=== PATIENT | female | born 1940 | race Caucasian/White ===

== ENCOUNTER 2017-04-03 10:35 | Outpatient (CLI) | payer MEDICARE, BC ==
--- NOTE | 2017-04-04 09:23 | Mammography Report ---
DIGITAL BILATERAL SCREENING MAMMOGRAM: 04/03/2017 CLINICAL HISTORY: A 76-year-old female who has no family history of breast cancer. The patient has saini d a breast biopsy. This was a needle biopsy a long time ago. COMPARISON: 01/22/2014, 02/23/2015. TECHNIQUE: Craniocaudad and oblique lateral views of each breast were obtained with Hologic full fiel d digital mammography. FINDINGS: The breast parenchyma consists of scattered fibroglandular densities. The oblique lateral view of the left breast does not show as much as the posterior inferior aspect of the left breast as noted on preceding exams. Recommend patient return for a repeat oblique lateral view of the left eri st. Several small benign intramammary lymph nodes are once again noted in the upper outer quadrant of the right breast with a single small benign appearing lymph node noted in the upper outer quadrant of th e left breast. A small surgical clip is noted in the central posterior aspect of the right breast rel ated to a previous minimally invasive breast biopsy. There is a small asymmetrical density in this ar ea once again seen measuring 0.7 cm in diameter. This has been noted on multiple preceding exams date d as far back as 01/22/2014 and is unchanged. The small calcifications are also noted in this area on ce again. These calcifications are unchanged. IMPRESSION: THE PRESENT EXAM IS SUBOPTIMAL. RECOMMEND PATIENT RETURN FOR A REPEAT OBLIQUE LATERAL EW OF THE LEFT BREAST FOR REASONS DISCUSSED ABOVE. BIRADS CATEGORY 0-INCOMPLETE. NEEDS ADDITIONAL IMAGING EVALUATION. REPEAT OBLIQUE LATERAL VIEW OF THE LEFT BREAST. STANDARD QUALIFYING STATEMENTS 1. This examination was reviewed with the aid of Computer-Aided Detection (CAD). 2. A negative or benign imaging report should not delay biopsy if clinically suspicious findings are present. Consider surgical consultation if warranted. More than 5% of cancers are not identified by i maging. 3. Dense breasts may obscure an underlying neoplasm. JOB #: [id number] EXT JOB #:[id number]
== END 2017-04-03 10:36 | disposition home or self-care (01) ==
LOC: DI.S 10:35
PROVIDERS: ATTEND Internal Medicine
DX: Z12.31 Encounter for screening mammogram for malignant neoplasm of breast (principal)
CPT/HCPCS: 77067

== ENCOUNTER 2017-04-25 14:26 | Outpatient (CLI) | payer MEDICARE, BC | END 2017-04-25 14:27 | disposition home or self-care (01) | LOC: DI 14:26 | PROVIDERS: ATTEND Internal Medicine | DX: Z12.31 Encounter for screening mammogram for malignant neoplasm of breast (principal) | CPT/HCPCS: 77067 ==

== ENCOUNTER 2017-05-07 10:08 | Outpatient (CLI) | payer MEDICARE, BC ==
[2017-05-07 18:04] LABS: BASOPHILS # (AUTO) 0.1 10^3/uL (0.0-0.1); EOSINOPHILS # (AUTO) 0.1 10^3/uL (0.0-0.7); EOSINOPHILS % (AUTO) 4.1 %; HCT - HEMATOCRIT 34.6 % (37.0-47.0); HGB - HEMOGLOBIN 10.8 g/dL (12.0-16.0); IMMATURE RETIC FRACTION 0.51; LYMPHOCYTES % (AUTO) 26.3 %; MEAN CORPUSCULAR HEMOGLOBIN 23.4 pg (27.0-31.0); MEAN CORPUSCULAR HGB CONC 31.3 g/dL (32.0-36.0); MEAN CORPUSCULAR VOLUME 74.7 fL (81.0-99.0); MONOCYTES # (AUTO) 0.3 10^3/uL (0.0-1.0); MONOCYTES % (AUTO) 9.3 %; NEUTROPHILS # (AUTO) 2.1 10^3/uL (1.5-6.6); NEUTROPHILS % (AUTO) 58.3 %; NUCLEATED RED BLOOD CELLS AUTO 0.1 /100WBC; RED BLOOD COUNT 4.64 10^6/uL (4.20-5.40); RED CELL DISTRIBUTION WIDTH 20.3 % (12.0-15.0); UNCORRECTED WHITE BLOOD COUNT 3.6 x10^3/uL; WHITE BLOOD COUNT 3.6 x10^3/uL (4.8-10.8)
[2017-05-07 18:23] LABS: PLATELET ESTIMATE, MANUAL NORMAL (130-450,000) (NORMAL); PLATELET MORPHOLOGY NORMAL APPEARANCE (NORMAL)
[2017-05-07 19:31] LABS: ALBUMIN/GLOBULIN RATIO 1.6 (1.0-2.2); BILIRUBIN,TOTAL 0.8 mg/dL (0.2-1.0); BUN - BLOOD UREA NITROGEN 24 mg/dL (6-20); CALCIUM 8.9 mg/dL (8.5-10.3); CARBON DIOXIDE - CO2 26 mmol/L (21-32); CHLORIDE 101 mmol/L (101-111); CHOLESTEROL 247 mg/dL; GFR - MDRD 54 (>89); GLUCOSE 84 mg/dL (70-100); HDL CHOLESTEROL 122 mg/dL; IRON 19 ug/dL (28-170); POTASSIUM 4.1 mmol/L (3.5-5.0); SODIUM 136 mmol/L (135-145); TOTAL IRON BINDING CAPACITY 463 ug/dL (250-450); TOTAL PROTEIN 6.9 g/dL (6.7-8.2); TRANSFERRIN 331 mg/dL (192-382); TRIGLYCERIDES 28 mg/dL
[2017-05-07 19:49] LABS: LDL CHOLESTEROL,DIRECT 103 mg/dL
== END 2017-05-07 10:09 | disposition home or self-care (01) ==
LOC: LAB.F 10:08
PROVIDERS: ATTEND Internal Medicine
DX: I10 Essential (primary) hypertension (principal)
CPT/HCPCS: 36415; 80053; 80061; 82607; 82728; 82746; 82747; 83540; 84466; 85025; 85044

== ENCOUNTER 2017-11-20 08:27 | Outpatient (CLI) | payer MEDICARE, BC | END 2017-11-20 08:28 | disposition home or self-care (01) | LOC: LAB.F 08:27 | PROVIDERS: ATTEND Nurse Practitioner Family | DX: I48.0 Paroxysmal atrial fibrillation (principal) | CPT/HCPCS: 85610 ==

== ENCOUNTER 2017-11-26 15:37 | Outpatient (CLI) | payer MEDICARE, BC | END 2017-11-26 15:38 | disposition home or self-care (01) | LOC: LAB.F 15:37 | PROVIDERS: ATTEND Student in an Organized Health Care Education/Training Program | DX: I48.91 Unspecified atrial fibrillation (principal) | CPT/HCPCS: 85610 ==

== ENCOUNTER 2017-12-04 14:51 | Outpatient (CLI) | payer MEDICARE, BC | END 2017-12-04 14:52 | disposition home or self-care (01) | LOC: LAB.F 14:51 | PROVIDERS: ATTEND Student in an Organized Health Care Education/Training Program | DX: I48.91 Unspecified atrial fibrillation (principal) | CPT/HCPCS: 85610 ==

== ENCOUNTER 2017-12-11 12:19 | Outpatient (CLI) | payer MEDICARE, BC | END 2017-12-11 12:20 | disposition home or self-care (01) | LOC: LAB.F 12:19 | PROVIDERS: ATTEND Student in an Organized Health Care Education/Training Program | DX: I48.91 Unspecified atrial fibrillation (principal) | CPT/HCPCS: 85610 ==

== ENCOUNTER 2018-01-07 15:06 | Outpatient (CLI) | payer MEDICARE, BC | END 2018-01-07 15:07 | disposition home or self-care (01) | LOC: LAB.F 15:06 | PROVIDERS: ATTEND Student in an Organized Health Care Education/Training Program | DX: I48.91 Unspecified atrial fibrillation (principal) | CPT/HCPCS: 85610 ==

== ENCOUNTER 2018-01-22 10:31 | Outpatient (CLI) | payer MEDICARE, BC | END 2018-01-22 10:32 | disposition home or self-care (01) | LOC: LAB.F 10:31 | PROVIDERS: ATTEND Student in an Organized Health Care Education/Training Program | DX: I48.91 Unspecified atrial fibrillation (principal) | CPT/HCPCS: 85610 ==

== ENCOUNTER 2018-02-13 10:50 | Outpatient (CLI) | payer MEDICARE, BC | END 2018-02-13 10:51 | disposition home or self-care (01) | LOC: LAB.F 10:50 | PROVIDERS: ATTEND Student in an Organized Health Care Education/Training Program | DX: I48.91 Unspecified atrial fibrillation (principal) | CPT/HCPCS: 85610 ==

== ENCOUNTER 2018-03-08 13:13 | Outpatient (CLI) | payer MEDICARE, BC | END 2018-03-08 13:14 | disposition home or self-care (01) | LOC: LAB.F 13:13 | PROVIDERS: ATTEND Student in an Organized Health Care Education/Training Program | DX: I48.91 Unspecified atrial fibrillation (principal) | CPT/HCPCS: 85610 ==

== ENCOUNTER 2018-04-01 11:32 | Outpatient (CLI) | payer MEDICARE, BC | END 2018-04-01 11:33 | disposition home or self-care (01) | LOC: LAB.F 11:32 | PROVIDERS: ATTEND Student in an Organized Health Care Education/Training Program | DX: I48.91 Unspecified atrial fibrillation (principal) | CPT/HCPCS: 85610 ==

== ENCOUNTER 2018-04-16 14:00 | Outpatient (CLI) | payer MEDICARE, BC | END 2018-04-16 14:01 | disposition home or self-care (01) | LOC: LAB.F 14:00 | PROVIDERS: ATTEND Student in an Organized Health Care Education/Training Program | DX: I48.91 Unspecified atrial fibrillation (principal) | CPT/HCPCS: 85610 ==

== ENCOUNTER 2018-05-08 15:19 | Outpatient (CLI) | payer MEDICARE, BC | END 2018-05-08 15:20 | disposition home or self-care (01) | LOC: LAB.F 15:19 | PROVIDERS: ATTEND Student in an Organized Health Care Education/Training Program | DX: I48.91 Unspecified atrial fibrillation (principal) | CPT/HCPCS: 85610 ==

== ENCOUNTER 2018-06-05 14:20 | Outpatient (CLI) | payer MEDICARE, BC | END 2018-06-05 14:21 | disposition home or self-care (01) | LOC: LAB.F 14:20 | PROVIDERS: ATTEND Student in an Organized Health Care Education/Training Program | DX: I48.91 Unspecified atrial fibrillation (principal) | CPT/HCPCS: 85610 ==

== ENCOUNTER 2018-07-02 14:53 | Outpatient (CLI) | payer MEDICARE, BC | END 2018-07-02 14:54 | disposition home or self-care (01) | LOC: LAB.F 14:53 | PROVIDERS: ATTEND Student in an Organized Health Care Education/Training Program | DX: I48.91 Unspecified atrial fibrillation (principal) | CPT/HCPCS: 85610 ==

== ENCOUNTER 2018-08-01 13:35 | Outpatient (CLI) | payer MEDICARE, BC ==
[2018-08-01 18:51] LABS: INR 2.7 (0.8-1.2); PT - PROTHROMBIN TIME 29.7 secs (9.9-12.6)
== END 2018-08-01 13:36 | disposition home or self-care (01) ==
LOC: LAB.F 13:35
PROVIDERS: ATTEND Student in an Organized Health Care Education/Training Program
DX: I48.91 Unspecified atrial fibrillation (principal)
CPT/HCPCS: 36415; 85610

== ENCOUNTER 2018-08-30 14:04 | Outpatient (CLI) | payer MEDICARE, BC | END 2018-08-30 14:05 | disposition home or self-care (01) | LOC: LAB.F 14:04 | PROVIDERS: ATTEND Student in an Organized Health Care Education/Training Program | DX: I48.91 Unspecified atrial fibrillation (principal) | CPT/HCPCS: 85610 ==

== ENCOUNTER 2018-09-24 13:55 | Outpatient (CLI) | payer MEDICARE, BC | END 2018-09-24 13:56 | disposition home or self-care (01) | LOC: LAB.F 13:55 | PROVIDERS: ATTEND Student in an Organized Health Care Education/Training Program | DX: I48.91 Unspecified atrial fibrillation (principal) | CPT/HCPCS: 85610 ==

== ENCOUNTER 2018-11-01 10:45 | Outpatient (CLI) | payer MEDICARE, BC | END 2018-11-01 10:46 | disposition home or self-care (01) | LOC: LAB.F 10:45 | PROVIDERS: ATTEND Student in an Organized Health Care Education/Training Program | DX: I48.91 Unspecified atrial fibrillation (principal) | CPT/HCPCS: 85610 ==

== ENCOUNTER 2018-11-19 08:00 | Outpatient (CLI) | payer MEDICARE, BC | END 2018-11-19 23:59 | disposition home or self-care (01) | LOC: LAB.F 08:00 | PROVIDERS: ATTEND Student in an Organized Health Care Education/Training Program | DX: I48.91 Unspecified atrial fibrillation (principal) | CPT/HCPCS: 85610 ==

== ENCOUNTER 2018-12-30 19:07 | Observation (INO) | payer MEDICARE, BC ==
[2018-12-30 19:57] LABS: ALBUMIN 3.7 g/dL (3.2-5.5); ALBUMIN/GLOBULIN RATIO 1.2 (1.0-2.2); BILIRUBIN,TOTAL 1.2 mg/dL (0.2-1.0); CALCIUM 9.4 mg/dL (8.5-10.3); CREATININE 1.3 mg/dL (0.4-1.0); TOTAL PROTEIN 6.7 g/dL (6.7-8.2)
[2018-12-30 19:59] LABS: BASOPHILS # (AUTO) 0.1 10^3/uL (0.0-0.1); BASOPHILS % (AUTO) 2.3 %; EOSINOPHILS # (AUTO) 0.1 10^3/uL (0.0-0.7); EOSINOPHILS % (AUTO) 3.1 %; HGB - HEMOGLOBIN 7.2 g/dL (12.0-16.0); LYMPHOCYTES # (AUTO) 0.7 10^3/uL (1.5-3.5); MEAN CORPUSCULAR HGB CONC 30.1 g/dL (32.0-36.0); MEAN CORPUSCULAR VOLUME 69.6 fL (81.0-99.0); MEAN PLATELET VOLUME 6.8 fL (7.9-10.8); MONOCYTES # (AUTO) 0.4 10^3/uL (0.0-1.0); NEUTROPHILS # (AUTO) 2.8 10^3/uL (1.5-6.6); NEUTROPHILS % (AUTO) 67.6 %; PLT - PLATELET COUNT 324 10^3/uL (130-450); RED BLOOD COUNT 3.45 10^6/uL (4.20-5.40); RED CELL DISTRIBUTION WIDTH 20.3 % (12.0-15.0); WHITE BLOOD COUNT 4.1 x10^3/uL (4.8-10.8)
--- NOTE | 2018-12-30 20:08 | ED Physician Documentation ---
History of Present Illness - Stated complaint Stated Complaint: SENT BY - Chief complaint Chief Complaint: General - History obtained from History obtained from: Patient - History of Present Illness Timing: Today Pain level max: 0 Pain level now: 0 Improved by: no ameliorating factors Worsened by: no exacerbating factors Associated symptoms: fatigue - Additonal information Additional information: saw PMD today for routine/annual visit. Blood work was done and patient was called tonight due to anemia, advised to go to ED. Patient has been having some back pain and fatigue on a chronic/subacute basis. She is aware that she has had anemia as a diagnosis in the past but does not recall ever needing transfusions. Review of Systems Constitutional: reports: Fatigue. denies: Fever, Chills, Sweats Eyes: reports: Reviewed and negative Ears: reports: Reviewed and negative Nose: reports: Reviewed and negative Throat: reports: Reviewed and negative Cardiac: reports: Reviewed and negative Respiratory: reports: Reviewed and negative GI: reports: Reviewed and negative : reports: Reviewed and negative Skin: reports: Reviewed and negative Musculoskeletal: reports: Back pain (chronic, mild) Neurologic: denies: Generalized weakness, Focal weakness, Numbness, Headache PD PAST MEDICAL HISTORY - Past Medical History Past Medical History: Yes Cardiovascular: Hypertension, Atrial fibrillation - Past Surgical History Past Surgical History: Yes Ortho: Hip replacement HEENT: Tonsil/Adenoidectomy - Present Medications Home Medications: Ambulatory Orders Medication Instructions Recorded Confirmed Ascorbic Acid [Vitamin C] 1,000 mg PO DAILY 12/30/18 12/30/18 D-Mannose [Mannxtra] 12/30/18 Enalapril [Vasotec] 10 mg PO DAILY 12/30/18 12/30/18 Metoprolol Succinate 50 mg PO DAILY 12/30/18 12/30/18 Multivitamin/Iron/Folic Acid 1 tab PO DAILY 12/30/18 12/30/18 [Centrum Adults Tablet] Warfarin [Coumadin] 2.5 mg PO DAILY 12/30/18 12/30/18 - Allergies Allergies/Adverse Reactions: Allergies Allergy/AdvReac Type Severity Reaction Status Date / Time No Known Drug Allergies Allergy Verified 12/30/18 19:17 - Social History Does the pt smoke?: No Smoking Status: Never smoker Does the pt drink ETOH?: Yes Does the pt have substance abuse?: No PD ED PE NORMAL - Vitals Vital signs reviewed: Yes - General General: Alert and oriented X 3, No acute distress, Well developed/nourished - HEENT HEENT: PERRL, EOMI, Moist mucous membranes - Neck Neck: Supple, no meningeal sign - Cardiac Cardiac: No murmur - Respiratory Respiratory: No respiratory distress, Clear bilaterally - Abdomen Abdomen: Normal bowel sounds, Soft, Non tender, Non distended - Back Back: No CVA TTP - Derm Derm: Normal color, Warm and dry - Extremities Extremities: No edema - Neuro Neuro: Alert and oriented X 3 PD ED PE EXPANDED - Cardiac Cardiac: Regular Rate, Irregularly irregular - Rectal Rectal: Heme Occult Pos - QC +, Manager Credit present (ROBLES Koch), Other (normal appearing stool, guaiac (+)) Results - Vitals Vitals: Vital Signs - 24 hr 12/30/18 12/30/18 12/30/18 19:13 21:07 22:12 Temperature 36.4 C L 36.7 C Heart Rate 105 H 90 101 H Respiratory 18 15 17 Rate Blood Pressure 128/54 L 139/92 H 131/69 H O2 Saturation 100 100 12/30/18 12/30/18 12/30/18 22:19 22:29 23:03 Temperature 36.4 C L 36.7 C 35.9 C L Heart Rate 94 96 88 Respiratory 17 17 17 Rate Blood Pressure 131/92 H 133/73 H 132/76 H O2 Saturation 12/30/18 23:06 Temperature 35.9 C L Heart Rate 88 Respiratory 17 Rate Blood Pressure 132/76 H O2 Saturation 97 Oxygen O2 Source Room air - Labs Labs: Laboratory Tests 12/30/18 12/30/18 12/30/18 19:38 19:38 19:38 WBC 4.1 L RBC 3.45 L Hgb 7.2 L Hct 24.0 L MCV 69.6 L MCH 21.0 L MCHC 30.1 L RDW 20.3 H Plt Count 324 MPV 6.8 L Neut # (Auto) 2.8 Lymph # (Auto) 0.7 L [place] # (Auto) 0.4 Eos # (Auto) 0.1 Baso # (Auto) 0.1 Absolute Nucleated RBC 0.01 Nucleated RBC % 0.3 Manual Slide Review Indicated Platelet Estimate NORMAL (130-450,000) Platelet Morphology NORMAL APPEARANCE RBC Morph Micro Appear 1+ JOAQUINA CELLS PT 16.8 H INR 1.5 H APTT 29.1 Sodium 141 Potassium 4.2 Chloride 102 Carbon Dioxide 26 Anion Gap 13.0 BUN 36 H Creatinine 1.3 H Estimated GFR (MDRD) 40 L Glucose 116 H Calcium 9.4 Iron TIBC % Saturation Transferrin Ferritin Total Bilirubin 1.2 H AST 23 ALT 24 Alkaline Phosphatase 53 Total Protein 6.7 Albumin 3.7 Globulin 3.0 Albumin/Globulin Ratio 1.2 Lipase 48 Blood Type Blood Type Recheck Antibody Screen Crossmatch IS Only 12/30/18 12/30/18 12/30/18 19:38 19:38 19:38 WBC RBC Hgb Hct MCV MCH MCHC RDW Plt Count MPV Neut # (Auto) Lymph # (Auto) [place] # (Auto) Eos # (Auto) Baso # (Auto) Absolute Nucleated RBC Nucleated RBC % Manual Slide Review Platelet Estimate Platelet Morphology RBC Morph Micro Appear PT INR APTT Sodium Potassium Chloride Carbon Dioxide Anion Gap BUN Creatinine Estimated GFR (MDRD) Glucose Calcium Iron 16 L TIBC 539 H % Saturation 3 L Transferrin 385 H Ferritin 5.4 L Total Bilirubin AST ALT Alkaline Phosphatase Total Protein Albumin Globulin Albumin/Globulin Ratio Lipase Blood Type Blood Type Recheck O POSITIVE Antibody Screen Crossmatch IS Only 12/30/18 20:35 WBC RBC Hgb Hct MCV MCH MCHC RDW Plt Count MPV Neut # (Auto) Lymph # (Auto) [place] # (Auto) Eos # (Auto) Baso # (Auto) Absolute Nucleated RBC Nucleated RBC % Manual Slide Review Platelet Estimate Platelet Morphology RBC Morph Micro Appear PT INR APTT Sodium Potassium Chloride Carbon Dioxide Anion Gap BUN Creatinine Estimated GFR (MDRD) Glucose Calcium Iron TIBC % Saturation Transferrin Ferritin Total Bilirubin AST ALT Alkaline Phosphatase Total Protein Albumin Globulin Albumin/Globulin Ratio Lipase Blood Type O POSITIVE Blood Type Recheck Antibody Screen NEGATIVE Crossmatch IS Only See Detail PD MEDICAL DECISION MAKING - ED course Complexity details: reviewed old records, reviewed results, re-evaluated patient, considered differential, d/w patient Departure - Departure Disposition: ED Place in Observation Clinical Impression: Anemia Qualifiers: Anemia type: unspecified type Qualified Code(s): D64.9 - Anemia, unspecified GI bleed Qualifiers: GI bleed type/associated pathology: unspecified gastrointestinal hemorrhage type Qualified Code(s): K92.2 - Gastrointestinal hemorrhage, unspecified Condition: Stable Discharge Date/Time: 12/31/18 00:01
[2018-12-30 20:18] LABS: PLATELET ESTIMATE, MANUAL NORMAL (130-450,000) (NORMAL); PLATELET MORPHOLOGY NORMAL APPEARANCE (NORMAL)
[2018-12-30 20:26] LABS: INR 1.5 (0.8-1.2); PT - PROTHROMBIN TIME 16.8 secs (9.9-12.6)
[2018-12-30 20:33] LABS: PARTIAL THROMBOPLASTIN TIME 29.1 secs (24.9-33.3)
[2018-12-30 21:59] LABS: % IRON SATURATION 3 % (20-50); IRON 16 ug/dL (28-170); TOTAL IRON BINDING CAPACITY 539 ug/dL (250-450); TRANSFERRIN 385 mg/dL (192-382)
[2018-12-30] MEDS ORDERED: SODIUM CHLORIDE FLUSH 0.9% 10 ML SYRINGE IVP PRN (23:16)
--- NOTE | 2018-12-31 00:06 | HISTORY & PHYSICAL EXAMINATION ---
Chief Complaint - Chief Complaint Chief Complaint: anemia History of Present Illness - Admitted From Admitted From:: [facility] ED - History Obtained From Records Reviewed: yes History obtained from: patient and [id number] - History of Present Illness HPI Comment/Other: Patient is a 78 y/o female with Hx of atrial fibrillation on coumadin and metoprolol who presented to the ED at the request of her primary care physician's clinic. She goes to the [facility] and had a routine visit today. Lab result showed she had a hemoglobin of 7.2. She denies any recent SOB, dizziness, palpitations, dark tarry stools, coffee ground emesis or hemoptysis. She cannot remember when she last had a CBC done or what her hemoglobin was. In the ED her hemoglobin was 7.2. It was reported that her guaiac stool test was very weakly positive. She denies chest pain, abd pain, nausea, vomiting, fever or chills. The rest of her history is unremarkable. She is being admitted for further work up. History - Past Medical History Cardiovascular: reports: Hypertension, Atrial fibrillation Musculoskeletal: reports: Scoliosis MRSA Hx?: No - Past Surgical History Ortho: reports: Hip replacement HEENT: reports: Tonsil/Adenoidectomy - Family & Social History Family History Comment/Other: Extensive family history of manic depression (un specified relative). Mother and siblings: extensive cardiac history (unspecified) Living arrangement: At home Living Situation: Alone Social History Notes: She lives in her house in [place]. Alone. She is . Her of 57 years in February 2018. She is independent of activities of daily living like grooming, cooking. She does not drive. She relies on friend and family for rides to her appointments,. She denies tobacco use or illicit drug use. She occassionally drinks alcohol - Substance History Use: Uses substance without health or social issues: NONE - POLST Patient has POLST: No POLST Status: DNR Meds/Allgy - Home Medications Home Medications: Ambulatory Orders Medication Instructions Recorded Confirmed Ascorbic Acid [Vitamin C] 1,000 mg PO DAILY 12/30/18 12/30/18 D-Mannose [Mannxtra] 12/30/18 Enalapril [Vasotec] 10 mg PO DAILY 12/30/18 12/30/18 Metoprolol Succinate 50 mg PO DAILY 12/30/18 12/30/18 Multivitamin/Iron/Folic Acid 1 tab PO DAILY 12/30/18 12/30/18 [Centrum Adults Tablet] Warfarin [Coumadin] 2.5 mg PO DAILY 12/30/18 12/30/18 - Allergies Allergies/Adverse Reactions: Allergies Allergy/AdvReac Type Severity Reaction Status Date / Time No Known Drug Allergies Allergy Verified 12/30/18 19:17 Review of Systems - Constitutional Constitutional: denies: Fever, Chills, Diaphoresis, Night sweats - Eyes Eyes: denies: Blurred vision, Vision loss, Dipolpia - Ears, Nose & Throat Ears, Nose & Throat: denies: Nasal pain, Nasal discharge, Hoarseness - Cardiovascular Cariovascular: reports: Irregular heart rate. denies: Chest pain, Edema, Lightheadedness, Syncope, Exertional dyspnea - Respiratory Respiratory: denies: Cough, Sputum production, Wheezing, SOB at rest - Gastrointestinal Gastrointestinal: denies: Abdominal pain, Abdominal distention, Constipation, Diarrhea, Rectal bleeding, Bloody stools, Nausea, Vomiting, Brian blood emesis, Coffee grounds emesis, Reflux/heartburn - Genitourinary Genitourinary: denies: Dysuria, Frequency, Urgency, Hematuria - Musculoskeletal Musculoskeletal: denies: Muscle pain, Back pain, Stiffness, Joint pain - Integumentary Integumentary: reports: Rash (bilateral lower extremities. itching), Pruritis - Neurological Neurological: denies: General weakness, Focal weakness, Headache, Dizziness, Abnormal gait - Psychiatric Psychiatric: denies: Depression, Anxiety - Endocrine Endocrine: denies: Polyuria, Polydypsia - Hematologic/Lymphatic Hematologic/Lymphatic: reports: Anemia. denies: Bruising, Petechiae Prior Level of Functionality: She is . Her of 57 years in February 2018 She is independent of activities of daily living like grooming, cooking. She does not drive. She relies on friend and family for rides to her appointments, She denies tobacco use or illicit drug use. She occasionally drinks alcohol Exam - Vital Signs Vital Signs: Vital Signs x48h Temp Pulse Resp BP Pulse Ox 12/30/18 23:36 36.5 C 92 16 128/70 12/30/18 23:25 37.0 C 92 16 131/87 H 12/30/18 23:20 37.1 C 93 17 123/94 H 12/30/18 23:06 35.9 C L 88 17 132/76 H 97 12/30/18 23:03 35.9 C L 88 17 132/76 H 12/30/18 22:29 36.7 C 96 17 133/73 H 12/30/18 22:19 36.4 C L 94 17 131/92 H 12/30/18 22:12 36.7 C 101 H 17 131/69 H 12/30/18 21:07 90 15 139/92 H 100 12/30/18 19:13 36.4 C L 105 H 18 128/54 L 100 - Physical Exam General Appearance: positive: No acute distress, Alert Eyes Bilateral: positive: Normal inspection, PERRL, EOMI ENT: positive: ENT inspection nml, Pharynx nml, No signs of dehydration Neck: positive: Nml inspection, No JVD, Trachea midline Respiratory: positive: Chest non-tender, No respiratory distress, Breath sounds nml. negative: Wheezes, Rales, Rhonchi Cardiovascular: positive: No murmur, Irregularly irregular Abdomen: positive: Non-tender, No organomegaly, Nml bowel sounds, No distention. negative: Guarding, Rebound Rectal: positive: Stool - heme POS (very weakly positive). negative: Black stool, Bloody stool Back: positive: Nml inspection Skin: positive: Skin rash (distal half of legs distal to knee bilaterally. Pruiritic) Extremities: positive: Non-tender, Full ROM, No pedal edema Neurologic/Psychiatric: positive: Oriented x3 Conclusion/Plan - Problem List (1) Anemia Conclusion/Plan: DDx: Iron Deficiency vs GI Bleed Likely Iron deficiency given result of iron studies and Microcytic nature of anemia s/p 2 units of PRBC. Guaiac was very weakly positive. Will check occult blood. Will trend H&H q8hrs X 3. If dropping, will consult General Surgery for EGD. Otherwise, will resume her coumadin and patient will need to follow up out patient for possible endoscopy Protonix 40mg IV daily ordered. Will place patient on supplemental iron Qualifiers: Anemia type: unspecified type Qualified Code(s): D64.9 - Anemia, unspecified (2) Atrial fibrillation Conclusion/Plan: On metoprolol. Will continue Will hold coumadin for now. Subtherapeutic Qualifiers: Atrial fibrillation type: chronic Qualified Code(s): I48.2 - Chronic atrial fibrillation (3) Hypertension Conclusion/Plan: On metoprolol and enalopril. Will continue - Lab Results Fish Bones: 12/30/18 19:38 12/30/18 19:38 Core Measures - Anticipated LOS I expect patient to be DC'd or transferred within 96 hours.: Yes - DVT/VTE - Prophylaxis VTE/DVT Device ordered at admit?: Yes Not Ordered - Medical Reason: Not indicated
[2018-12-31] MEDS: SODIUM CHLORIDE FLUSH 0.9% 10 ML SYRINGE IVP SCH ×2 (00:35→08:49)
[2018-12-31] MEDS: HYDROCORTISONE 1% CREAM 28 GM TUBE TOP SCH ×2 (00:54→08:42)
[2018-12-31] MEDS: METOPROLOL SUCCINATE 50 MG TABLET PO SCH ×2 (00:54→08:41)
[2018-12-31 06:14] LABS: CALCIUM 8.7 mg/dL (8.5-10.3)
[2018-12-31 06:18] LABS: HGB - HEMOGLOBIN 7.8 g/dL (12.0-16.0); MEAN CORPUSCULAR HEMOGLOBIN 22.7 pg (27.0-31.0); MEAN CORPUSCULAR HGB CONC 30.9 g/dL (32.0-36.0); MEAN CORPUSCULAR VOLUME 73.6 fL (81.0-99.0); MEAN PLATELET VOLUME 7.1 fL (7.9-10.8); RED BLOOD COUNT 3.44 10^6/uL (4.20-5.40); RED CELL DISTRIBUTION WIDTH 23.1 % (12.0-15.0); WHITE BLOOD COUNT 5.2 x10^3/uL (4.8-10.8)
[2018-12-31] MEDS ORDERED: PANTOPRAZOLE 40 MG VIAL IVP SCH (07:00)
[2018-12-31 07:33] LABS: ABSOLUTE RETICS # AUTO 0.071 10^6/uL (0.020-0.110); MEAN RETIC VALUE 95.2; RED BLOOD COUNT 3.41 10^6/uL (4.20-5.40)
[2018-12-31] MEDS ORDERED: FERROUS SULFATE 325 MG TABLET PO SCH (08:00)
[2018-12-31] MEDS ORDERED: PIPERACILLIN/TAZOBACTAM 3.375 GM in SODIUM CHLORIDE 0.9% MINIBAG 100 ML IV ONE (08:00)
[2018-12-31] MEDS ORDERED: POLYETHYLENE GLYCOL 3350 17 GM PACKET PO SCH (09:00)
[2018-12-31] MEDS ORDERED: ENALAPRIL 5 MG TABLET PO SCH (09:00)
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
[2018-12-31 11:47] VITALS: BP 143/72
[2018-12-31] MEDS ORDERED: PIPERACILLIN/TAZOBACTAM 3.375 GM in SODIUM CHLORIDE 0.9% MINIBAG 100 ML IV SCH (12:00)
[2018-12-31] MEDS ORDERED: METOPROLOL SUCCINATE 50 MG TABLET PO SCH (21:00)
--- NOTE | 2019-01-05 20:20 | DISCHARGE SUMMARY ---
Physician: Jada Rosas MD DATE OF ADMISSION: 12/30/2018 DATE OF DISCHARGE: 12/31/2018 DISCHARGE DIAGNOSES 1. Iron deficiency anemia with chronic blood loss. 2. Chronic atrial fibrillation. 3. Hypertension. 4. Cognitive deficits, probably of aging. 5. Adjustment disorder with depression. DISCHARGE MEDICATIONS 1. Vitamin C 1000 mg daily. 2. D-Mannose 300 mg powder daily as needed for UTI prevention. 3. Vasotec 10 mg daily. 4. Metoprolol succinate 50 mg daily. 5. Multivitamin with iron, folic acid and Centrum tablet daily. 6. Coumadin 2.5 mg daily, as instructed by her primary care provider. 7. Ferrous gluconate 250 mg p.o. daily. PRINCIPAL PROCEDURES: Transfusion of 2 units of packed cells. HOSPITAL COURSE: She is a 78-year-old white female who is usually not followed by any practice on the [place]. She is followed on the [facility] and saw her primary care provider, Dr. Chester. She was seen this morning for routine followup. The patient is adamant that she has no shortness of breath, dizziness, palpitations, dark tarry stools, coffee-ground emesis, or hemoptysis. She does not ever remember being anemic in the past. After leaving the office, and routine blood tests were done, she was found to have had a hemoglobin of 7.2. Her primary care provider referred her to our emergency room for treatment, even though this patient has no symptoms. In the emergency room, temperature was 36.4. Pulse was 105, blood pressure 128/54, respirations 18, 100% on room air. She is an alert, elderly woman. Affect was that of just a vague historian. After developing carefully into this, because at times she just seemed very disengaged, the story came out that she has recently lost her and she is still grieving him and is depressed. Friends at the bedside endorse that. They are worried because of her cognitive effects of aging and can't tell if she is getting dementia. She, herself, states that she is eating well. Sleeping well. She was transfused 2 units of blood. On admission, her BUN and creatinine were 36 and 1.3. At discharge, they were 36 and 1. She had definite iron deficiency anemia with an iron of 16, TIBC 539, percent saturation 3, transferrin 385. Ferritin very low at 5.4; normal is usually 11 at minimum. LDH was 168. B12 was 302. Retic count was 2.08 and normal, and absolute retic count was 0.071. She was transfused 2 units and only bumped up to 7.8 grams. During her stay there was no melena, emesis, abdominal pain. Blood pressure remained stable. No tachycardia. We were in the process of discussing whether she needed to have one more unit of blood when the patient was adamant that she did not want to be transfused anymore. She was asymptomatic. She did not understand what all the fuss was about. She felt she had no symptoms when she came in, was annoyed at being told to be here. As such, since she doesn't meet the lower liberal criteria for transfusion without cardiac disease, chemotherapy, etc., it was felt practical that she could return to home. Her stool was trace guaiac positive. She will need to be seen by her primary care provider to verify when her last colonoscopy, endoscopy, etc. was. PHYSICAL EXAMINATION VITAL SIGNS: At discharge, temperature was 36.7, pulse 96, blood pressure 113/73, respirations 17, 100% on room air. GENERAL: She is a well-groomed, well-developed, elderly woman who looks her stated age. Again, the only thing a am finding on exam is that of mild cognitive deficits. I cannot tell if this is due to her depression, or if she is having early dementia. NECK: Supple, without bruits. No goiter. LUNGS: Clear to auscultation and percussion. HEART: She has an irregular rate and rhythm, and PMI is normally placed. No RVR. ABDOMEN: Soft, nontender. I explained to the patient that with Coumadin to reduce her risk of stroke, workup may indicate that she is no longer a candidate for anticoagulation. She needs to discuss this with her primary care provider. She also spoke to me, saying that it was getting difficult to [place] care provider. As such, we gave her a list of providers [place]. I also gave her the name of Dr. Bakari Owens, who is a general surgeon that may be able to do her upper and lower scope. Because she is getting more forgetful, and her friends are worried about her, she is also thinking of changing her power of prosecuting attorney. She would like it to be someone who is not family. Right now her son is, and she does not find him trustworthy or reliable. So she may be seeking a company that you pay to do that, who becomes a fiduciary classified advertising manager. She is also trying to explore whether she wants to live in her own home and pay for in home care there, or live at an assisted living facility such as [facility]. Again, I encouraged her to make sure she makes a followup with her current primary care provider to get the referral for the upper and lower endoscopy. She has been started on an iron tablet, and she should consider whether or not she really wants to continue on Coumadin in the face of anemia. TD: 01/05/2019 19:20 [facility]
== END 2018-12-31 12:30 | disposition home or self-care (01) ==
LOC: ED 19:07 → OBS 23:16
PROVIDERS: ADMIT Internal Medicine; ATTEND Specialist
DX: D50.0 Iron deficiency anemia secondary to blood loss (chronic) (principal); I48.2 Chronic atrial fibrillation; Z79.01 Long term (current) use of anticoagulants; I10 Essential (primary) hypertension; G31.84 Mild cognitive impairment of uncertain or unknown etiology; F43.21 Adjustment disorder with depressed mood; F32.9 Major depressive disorder, single episode, unspecified; Z66 Do not resuscitate
CPT/HCPCS: 36415; 36430; 80048; 80053; 82607; 82728; 83540; 83615; 83690; 84466; 85025; 85027; 85044; 85610; 85730; 86850; 86900; 86901; 86920; 96374; 99284; A9270; G0378; P9016

== ENCOUNTER 2019-01-13 14:07 | Outpatient (CLI) | payer MEDICARE, BC | END 2019-01-13 14:08 | disposition home or self-care (01) | LOC: LAB.F 14:07 | PROVIDERS: ATTEND Student in an Organized Health Care Education/Training Program | DX: I48.91 Unspecified atrial fibrillation (principal) | CPT/HCPCS: 85610 ==

== ENCOUNTER 2019-01-16 13:09 | Outpatient (CLI) | payer MEDICARE, BC | END 2019-01-16 13:10 | disposition home or self-care (01) | LOC: LAB.F 13:09 | PROVIDERS: ATTEND Student in an Organized Health Care Education/Training Program | DX: I48.91 Unspecified atrial fibrillation (principal) | CPT/HCPCS: 85610 ==

== ENCOUNTER 2019-01-18 13:17 | Outpatient (CLI) | payer MEDICARE, BC | END 2019-01-18 13:18 | disposition critical access hospital (66) | LOC: EMS 13:17 | PROVIDERS: ATTEND Surgery | DX: M54.5 Low back pain (principal); R41.0 Disorientation, unspecified; R73.09 Other abnormal glucose; S99.929A Unspecified injury of unspecified foot, initial encounter; X58.XXXA Exposure to other specified factors, initial encounter; Y92.009 Unspecified place in unspecified non-institutional (private) residence as the place of occurrence of the external cause | CPT/HCPCS: A0425; A0427 ==

== ENCOUNTER 2019-01-18 13:53 | Inpatient (IN) | payer MEDICARE, BC ==
--- NOTE | 2019-01-18 14:06 | ED Physician Documentation ---
History of Present Illness - Stated complaint Stated Complaint: FALL/ ON GROUND X 2 DAYS - Chief complaint Chief Complaint: Trauma Ch/Bk - History obtained from History obtained from: Patient, EMS - History of Present Illness Timing: Other (78-year-old woman who says she was tired 2 days ago and got down on the floor for a rest and never got back up. She denies falling. She is slightly confused. [place]. Her son I guess was trying to get a hold of her and eventually called 911 for a well check and that is how she was found down on the ground. She is a remote left hip replacement. She does have A. fib and is on metoprolol and warfarin but has not been able to get to her meds for a couple of days. She denies any pain except for a pinching in her left hip.) Review of Systems Ten Systems: 10 systems reviewed and negative Constitutional: denies: Fever, Chills Cardiac: denies: Chest pain / pressure, Palpitations Respiratory: denies: Dyspnea, Cough GI: denies: Abdominal Pain Musculoskeletal: reports: Back pain (chronic) PD PAST MEDICAL HISTORY - Past Medical History Past Medical History: Yes Cardiovascular: Hypertension, Atrial fibrillation Musculoskeletal: Scoliosis - Past Surgical History Past Surgical History: Yes Ortho: Hip replacement HEENT: Tonsil/Adenoidectomy - Present Medications Home Medications: Ambulatory Orders Medication Instructions Recorded Confirmed Ascorbic Acid [Vitamin C] 1,000 mg PO DAILY 12/30/18 01/18/19 D-Mannose [Mannxtra] 1 ea PO PRN PRN 12/30/18 01/18/19 Enalapril [Vasotec] 10 mg PO DAILY 12/30/18 01/18/19 Metoprolol Succinate 50 mg PO DAILY 12/30/18 01/18/19 Multivitamin/Iron/Folic Acid 1 tab PO DAILY 12/30/18 01/18/19 [Centrum Adults Tablet] Ferrous Gluconate 240 mg PO DAILY #90 tablet 12/31/18 01/18/19 Warfarin Sodium 2.5 mg PO DAILY 01/18/19 01/18/19 - Allergies Allergies/Adverse Reactions: Allergies Allergy/AdvReac Type Severity Reaction Status Date / Time No Known Drug Allergies Allergy Verified 01/18/19 14:12 - Living Situation Living Situation: reports: Alone - Social History Does the pt smoke?: No Smoking Status: Never smoker Does the pt drink ETOH?: Yes Does the pt have substance abuse?: No - Family History Family history: reports: Non contributory - POLST Patient has POLST: No POLST Status: DNR PD ED PE NORMAL - Vitals Vital signs reviewed: Yes - General General: No acute distress, Well developed/nourished, Other (She is alert and oriented to person and place but not time and is a vague historian for recent events.) - HEENT HEENT: PERRL, EOMI - Neck Neck: Supple, no meningeal sign, No bony TTP - Cardiac Cardiac: Other (Irregularly irregular without murmur) - Respiratory Respiratory: No respiratory distress, Clear bilaterally - Abdomen Abdomen: Normal bowel sounds, Soft, Non tender - Back Back: No CVA TTP, No spinal TTP - Extremities Extremities: No calf tenderness / cord, Other (Left leg is slightly shortened, she has an abrasion on the Heel foot. She winces with internal and external rotation of the left hip.) - Neuro Neuro: No motor deficit, No sensory deficit Eye Opening: Spontaneous Motor: Obeys Commands Verbal: Confused GCS Score: 14 - Psych Psych: Normal mood, Normal affect Results - Vitals Vitals: Vital Signs - 24 hr 01/18/19 01/18/19 01/18/19 13:55 14:30 14:42 Temperature 35.6 C L Heart Rate 147 H 118 H 100 Respiratory 14 Rate Blood Pressure 159/90 H 150/90 H 159/90 H O2 Saturation 100 01/18/19 01/18/19 14:43 14:53 Temperature Heart Rate 94 88 Respiratory Rate Blood Pressure 160/90 H 155/99 H O2 Saturation Oxygen O2 Source Room air - EKG (time done) 1427 Rate: Rate (enter#) (92) Rhythm: NSR [place]: Normal Ischemia: Q waves (v1-v3) Computer interpretation: Agree with computer - Labs Labs: Laboratory Tests 01/18/19 01/18/19 01/18/19 14:10 14:10 14:10 WBC 5.2 RBC 4.11 L Hgb 9.4 L Hct 30.5 L MCV 74.2 L MCH 23.0 L MCHC 31.0 L RDW 25.7 H Plt Count 303 MPV 7.0 L Neut # (Auto) 4.1 Lymph # (Auto) 0.7 L [place] # (Auto) 0.3 Eos # (Auto) 0.1 Baso # (Auto) 0.1 Absolute Nucleated RBC 0.00 Nucleated RBC % 0.0 Manual Slide Review Indicated RBC Morph Micro Appear 1+ POLYCHROMASIA PT INR Sodium 137 Potassium 3.8 Chloride 100 L Carbon Dioxide 24 Anion Gap 13.0 BUN 19 Creatinine 1.0 Estimated GFR (MDRD) 54 L Glucose 143 H Lactic Acid Calcium 8.8 Total Bilirubin 1.8 H AST 47 H ALT 40 Alkaline Phosphatase 51 Total Creatine Kinase 722 H CK-MB (CK-2) 11.7 H Troponin I < 0.04 Total Protein 6.0 L Albumin 3.5 Globulin 2.5 Albumin/Globulin Ratio 1.4 Lipase 24 Urine Color Urine Clarity Urine pH Ur Specific [place] Urine Protein Urine Glucose (UA) Urine Ketones Urine Occult Blood Urine Nitrite Urine Bilirubin Urine Urobilinogen Ur Leukocyte Esterase Urine RBC Urine WBC Ur Squamous Epith Cells Urine Bacteria Ur Microscopic Review Urine Culture Comments Ethyl Alcohol < 5.0 01/18/19 01/18/19 01/18/19 14:10 14:18 16:00 WBC RBC Hgb Hct MCV MCH MCHC RDW Plt Count MPV Neut # (Auto) Lymph # (Auto) [place] # (Auto) Eos # (Auto) Baso # (Auto) Absolute Nucleated RBC Nucleated RBC % Manual Slide Review RBC Morph Micro Appear PT 16.8 H INR 1.5 H Sodium Potassium Chloride Carbon Dioxide Anion Gap BUN Creatinine Estimated GFR (MDRD) Glucose Lactic Acid 1.2 Calcium Total Bilirubin AST ALT Alkaline Phosphatase Total Creatine Kinase CK-MB (CK-2) Troponin I Total Protein Albumin Globulin Albumin/Globulin Ratio Lipase Urine Color YELLOW Urine Clarity HAZY Urine pH 6.0 Ur Specific [place] 1.025 Urine Protein NEGATIVE Urine Glucose (UA) NEGATIVE Urine Ketones 40 H Urine Occult Blood SMALL H Urine Nitrite POSITIVE H Urine Bilirubin NEGATIVE Urine Urobilinogen 0.2 (NORMAL) Ur Leukocyte Esterase NEGATIVE Urine RBC 0-5 Urine WBC 6-10 H Ur Squamous Epith Cells FEW Squamous Urine Bacteria Many H Ur Microscopic Review INDICATED Urine Culture Comments INDICATED Ethyl Alcohol - Rads (name of study) CT Head Radiology: EMP read contemporaneously LLE CT Radiology: EMP read contemporaneously (neg for frx) L hip XR Radiology: EMP read contemporaneously (neg) 1v chest Radiology: EMP read contemporaneously (no clear abn, poss retrocardiac opacity) PD MEDICAL DECISION MAKING - ED course ED course: 78-year-old woman arrives by ambulance having been on the ground in her room for the last couple of days. It is unclear why she was down there in the first place but basically was unable to get up. She is modestly confused. Discussed by phone with her son who is on his way to the hospital. Within the last couple weeks she started dragging the left leg and falling a lot. This corroborates with the finding of a subacute right parietal CVA on head CT. She has some hip pain, the x-ray was negative, CT was ordered pending admission. She was in atrial fibrillation with rapid ventricular response, she was rate controlled after single dose of IV metoprolol. Case discussed by phone with Dr. Love the hospitalist at 4 PM, he would like her anticoagulated and a dose of Lovenox as ordered. She also has mild rhabdomyolysis. This is treated with IV fluids.She was also found to have positive urinalysis and was treated for Rocephin, discussed with the hospitalist and they would like a second blood culture prior to the administration of this. 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
[2019-01-18] MEDS ORDERED: METOPROLOL 5 MG/5 ML VIAL IVP STA (14:15)
[2019-01-18 14:29] LABS: BASOPHILS # (AUTO) 0.1 10^3/uL (0.0-0.1); BASOPHILS % (AUTO) 1.3 %; EOSINOPHILS # (AUTO) 0.1 10^3/uL (0.0-0.7); EOSINOPHILS % (AUTO) 1.7 %; HGB - HEMOGLOBIN 9.4 g/dL (12.0-16.0); LYMPHOCYTES # (AUTO) 0.7 10^3/uL (1.5-3.5); LYMPHOCYTES % (AUTO) 12.9 %; MEAN CORPUSCULAR VOLUME 74.2 fL (81.0-99.0); MONOCYTES # (AUTO) 0.3 10^3/uL (0.0-1.0); MONOCYTES % (AUTO) 5.7 %; NEUTROPHILS # (AUTO) 4.1 10^3/uL (1.5-6.6); NEUTROPHILS % (AUTO) 78.4 %; PLT - PLATELET COUNT 303 10^3/uL (130-450); RED BLOOD COUNT 4.11 10^6/uL (4.20-5.40); RED CELL DISTRIBUTION WIDTH 25.7 % (12.0-15.0); WHITE BLOOD COUNT 5.2 x10^3/uL (4.8-10.8)
[2019-01-18 14:35] LABS: ALBUMIN 3.5 g/dL (3.2-5.5); ALBUMIN/GLOBULIN RATIO 1.4 (1.0-2.2); ALKALINE PHOSPHATASE 51 IU/L (42-121); ALT ALANINE AMINOTRANSFERASE 40 IU/L (10-60); AST ASPARTATE AMINOTRANSFERASE 47 IU/L (10-42); BILIRUBIN,TOTAL 1.8 mg/dL (0.2-1.0); BUN - BLOOD UREA NITROGEN 19 mg/dL (6-20); CALCIUM 8.8 mg/dL (8.5-10.3); CARBON DIOXIDE - CO2 24 mmol/L (21-32); CHLORIDE 100 mmol/L (101-111); CK- CREATINE KINASE 722 IU/L (22-269); GFR - MDRD 54 (>89); GLUCOSE 143 mg/dL (70-100); LIPASE 24 U/L (22-51); SODIUM 137 mmol/L (135-145)
[2019-01-18 14:39] LABS: TROPONIN I < 0.04 ng/mL (<0.49)
[2019-01-18 14:41] LABS: CREATINE KINASE MB 11.7 ng/mL (0.6-6.3)
[2019-01-18 14:43] LABS: INR 1.5 (0.8-1.2); PT - PROTHROMBIN TIME 16.8 secs (9.9-12.6)
[2019-01-18] MEDS ORDERED: LACTATED RINGERS 1,000 ML IV STA (15:46)
--- NOTE | 2019-01-18 15:51 | XRAY Report ---
Reason: weakness Procedure Date: 01/18/2019 Accession Number: [id number] / [id number] Procedure: XR - Chest 1 View X-Ray CPT Code: 86392 FULL RESULT: EXAM: CHEST RADIOGRAPHY EXAM DATE: 01/18/2019 03:19 PM. CLINICAL HISTORY: Atrial fibrillation COMPARISON: None available. TECHNIQUE: 1 view. FINDINGS: Lungs/Pleura: There is an apparent retrocardiac density. The right lung is grossly clear. No pneumothorax. Mediastinum: Cardiomegaly is present. There is atherosclerotic calcification in the aorta. Other: There is a convex right thoracic scoliosis. IMPRESSION: 1. Cardiomegaly without failure. 2. There is an apparent retrocardiac density, incompletely characterized. RADIA
--- NOTE | 2019-01-18 15:51 | CT Report ---
Reason: altered Procedure Date: 01/18/2019 Accession Number: [id number] / [id number] Procedure: CT - HEAD WO CPT Code: FULL RESULT: EXAM: CT HEAD EXAM DATE: 01/18/2019 03:29 PM. CLINICAL HISTORY: Confusion COMPARISON: None. TECHNIQUE: Multiaxial CT images were obtained from the foramen magnum to the vertex. Reformats: Sagittal and coronal. IV contrast: None. In accordance with CT protocol optimization, one or more of the following dose reduction techniques were utilized for this exam: automated exposure control, adjustment of mA and/or KV based on patient size, or use of iterative reconstructive technique. FINDINGS: Parenchyma: There is right occipital cortical and subcortical hypodensity with some sulcal effacement. No evidence of hemorrhage. No midline shift. There is periventricular white matter hypodensity which likely represent small vessel ischemic disease. Extraaxial Spaces: Normal for age. No subdural or epidural collections identified. Ventricles: Normal in size and position. Sinuses and Orbits: Imaged paranasal sinuses, orbits, and mastoids show no significant abnormality. Bones: No evidence of fracture or calvarial defect. Other: None. IMPRESSION: 1. There is cortical and subcortical hypodensity within the right parietal region. There is associated sulcal effacement. Findings are suspicious for subacute posterior right MCA distribution infarct. There is no evidence of hemorrhage. 2. Scattered periventricular white matter hypodensity likely represents small vessel ischemic disease. RADIA
--- NOTE | 2019-01-18 15:52 | XRAY Report ---
Reason: hip inj Procedure Date: 01/18/2019 Accession Number: [id number] / [id number] Procedure: XR - Hip w/Pelvis 2-3V LT CPT Code: FULL RESULT: EXAM: LEFT HIP RADIOGRAPHY EXAM DATE: 01/18/2019 03:19 PM HISTORY: The patient was found down after 2 days COMPARISONS: None available. TECHNIQUE: 2 views. FINDINGS: Bones: Osteopenia is present. No fractures or bone lesion. A right hip prosthesis is present. Joints: Joint alignment within normal limits. There is degenerative sclerosis in the superior left hip. There is degenerative disk disease and scoliosis in the lumbar spine. Soft Tissues: There are pelvic phleboliths. There is a large amount of stool in the rectum. IMPRESSION: Osteopenia. No fracture on x-ray imaging. Note: Osteopenia can limit detection of trabecular fracture. If the patient cannot ambulate, recommend MRI hip to exclude occult fracture. RADIA
[2019-01-18] MEDS ORDERED: ENOXAPARIN 80 MG/0.8 ML SYRINGE SUBQ STA (15:59)
[2019-01-18 16:10] LABS: BILIRUBIN,URINE NEGATIVE (NEGATIVE); GLUCOSE, URINE (UA) NEGATIVE (NEGATIVE); KETONES,URINE (UA) 40 mg/dL (NEGATIVE); LEUKOCYTE ESTERASE, URINE NEGATIVE (NEGATIVE); NITRITE,URINE POSITIVE (NEGATIVE); OCCULT BLOOD,URINE SMALL (NEGATIVE); PROTEIN,URINE NEGATIVE (NEGATIVE); UROBILINOGEN,URINE 0.2 (NORMAL) E.U./dL (NORMAL)
[2019-01-18 16:13] LABS: CLARITY,URINE HAZY (CLEAR)
[2019-01-18] MEDS ORDERED: ONDANSETRON 4 MG/2 ML VIAL IVP PRN (16:20)
[2019-01-18] MEDS ORDERED: ACETAMINOPHEN 325 MG TABLET PO PRN (16:20)
[2019-01-18] MEDS ORDERED: TEMAZEPAM 15 MG CAPSULE PO PRN (16:20)
[2019-01-18] MEDS ORDERED: SODIUM CHLORIDE FLUSH 0.9% 10 ML SYRINGE IVP PRN (16:20)
[2019-01-18 16:24] LABS: BACTERIA,URINE Many /HPF (None Seen); RBC,URINE 0-5 /HPF (0-5); SQUAMOUS EPITHELIAL CELL,UR FEW Squamous (<= Few)
[2019-01-18] MEDS ORDERED: cefTRIAXone 1 GM in SODIUM CHLORIDE 0.9% MINIBAG 100 ML IV STA (16:36)
--- NOTE | 2019-01-18 16:37 | CT Report ---
Reason: Left hip pain/fall injury Procedure Date: 01/18/2019 Accession Number: [id number] / [id number] Procedure: CT - LOWER EXTREMITY WO - LT CPT Code: FULL RESULT: EXAM: LEFT HIP CT WITHOUT CONTRAST EXAM DATE: 01/18/2019 04:22 PM. CLINICAL HISTORY: Left hip pain after fall COMPARISON: HIP W/PELVIS 2-3V LT 01/18/2019 2:44 PM. TECHNIQUE: Thin-section axial images were acquired of the hip without contrast. Post-processing: Coronal and sagittal reformats. Other: None. In accordance with CT protocol optimization, one or more of the following dose reduction techniques were utilized for this exam: automated exposure control, adjustment of mA and/or KV based on patient size, or use of iterative reconstructive technique. FINDINGS: Bones: No fracture or bone lesion. Joints: Moderate left hip osteoarthritis is present. There is also moderate to severe lower lumbar degenerative disk and facet disease. Musculature: Moderate fatty atrophy of the left gluteus minimus and mild fatty atrophy of the left gluteus medius muscle bellies. The remaining visible musculature is unremarkable. Other: The subcutaneous tissues are unremarkable. IMPRESSION: No apparent acute abnormality. Specifically, no left hip or left hemipelvis fracture. Please note that nondisplaced fractures in elderly osteopenic patients can occasionally be occult on CT. If clinical concern persists, MRI could be performed for definitive evaluation. [facility]IA
[2019-01-18] MEDS ORDERED: cefTRIAXone 1 GM VIAL ONE (16:46)
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
[2019-01-18] MEDS ORDERED: SODIUM CHLORIDE 0.9% 1,000 ML IV SCH (17:00)
[2019-01-18] MEDS: SODIUM CHLORIDE FLUSH 0.9% 10 ML SYRINGE IVP SCH ×2 (17:36→23:16)
[2019-01-18 18:20] LABS: MUDS CUTOFF CONCENTRATIONS CUTOFF CONC BELOW:
[2019-01-18 19:01] LABS: AMPHETAMINE SCREEN,URINE NEGATIVE (NEGATIVE); BENZODIAZEPINES SCREEN, URINE NEGATIVE (NEGATIVE); COCAINE SCREEN URINE NEGATIVE (NEGATIVE); METHADONE SCREEN, URINE NEGATIVE (NEGATIVE); METHAMPHETAMINES SCREEN, URINE NEGATIVE (NEGATIVE); OPIATE SCREEN, URINE NEGATIVE (NEGATIVE); TRICYCLIC ANTIDEPRESSANT,URINE NEGATIVE (NEGATIVE)
[2019-01-18 19:02] LABS: OXYCODONE SCREEN, URINE NEGATIVE (NEGATIVE); PROPOXYPHENE SCREEN, URINE NEGATIVE (NEGATIVE)
[2019-01-18] MEDS: METOPROLOL SUCCINATE 50 MG TABLET PO SCH (19:16)
[2019-01-18] MEDS: SODIUM CHLORIDE 0.9% 1,000 ML IV SCH ×2 (19:22→22:52)
[2019-01-18 20:30] LABS: CALCIUM 8.7 mg/dL (8.5-10.3); CREATININE 1.1 mg/dL (0.4-1.0)
[2019-01-18 20:37] LABS: HEMOGLOBIN A1C 0.36 g/dL; HEMOGLOBIN A1C % 5.8 % (4.6-6.2)
[2019-01-19] MEDS ORDERED: PANTOPRAZOLE 40 MG VIAL IVP SCH (07:00)
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
[2019-01-19] MEDS ORDERED: METOPROLOL SUCCINATE 50 MG TABLET PO SCH (09:00)
[2019-01-19] MEDS: SODIUM CHLORIDE FLUSH 0.9% 10 ML SYRINGE IVP SCH ×2 (09:24→16:44)
[2019-01-19] MEDS: METOPROLOL SUCCINATE 50 MG TABLET PO SCH (09:24)
[2019-01-19] MEDS: POLYETHYLENE GLYCOL 3350 17 GM PACKET PO SCH (09:24)
[2019-01-19] MEDS: SODIUM CHLORIDE 0.9% 1,000 ML IV SCH ×2 (10:21→23:51)
[2019-01-19] MEDS ORDERED: ENOXAPARIN 80 MG/0.8 ML SYRINGE SUBQ SCH (11:00)
[2019-01-19] MEDS: APIXABAN 5 MG TABLET PO SCH ×2 (11:44→20:56)
[2019-01-19] MEDS ORDERED: METOPROLOL TARTRATE 25 MG TABLET PO ONE (14:00)
--- NOTE | 2019-01-19 15:36 | Ultrasound Report ---
Reason: LLE duplex eval for DVT Procedure Date: 01/19/2019 Accession Number: [id number] / [id number] Procedure: US - Duplex Ext Veins Left CPT Code: FULL RESULT: EXAM: LEFT LOWER EXTREMITY VENOUS ULTRASOUND EXAM DATE: 01/19/2019 12:57 PM. CLINICAL HISTORY: Left lower extremity weakness in a 78-year-old female post recent stroke with swelling and pain post fall. COMPARISON: LOWER EXTREMITY LEFT W/O 01/18/2019 4:13 PM. TECHNIQUE: Real-time sonographic vascular imaging was performed by the research animal attendant through the lower extremity utilizing both color-flow and Doppler spectral analysis. Multiple marketing development representative static images were saved for review. FINDINGS: Common Femoral Vein (CFV): Normal. CFV-GSV Junction: Normal. Profunda Femoral Vein (PFV): Normal. Femoral Vein (FV) Prox: Normal. Femoral Vein (FV) Mid: Normal. Femoral Vein (FV) Dist: Normal. Popliteal Vein: Normal. Posterior Tibial Veins: Normal. Peroneal Veins: Normal. Contralateral Side CFV: Normal. Other: None. IMPRESSION: No sonographic evidence for deep venous thrombosis. [facility]
[2019-01-19] MEDS: cefTRIAXone 1 GM in SODIUM CHLORIDE 0.9% MINIBAG 100 ML IV SCH (16:43)
[2019-01-20] MEDS: SODIUM CHLORIDE FLUSH 0.9% 10 ML SYRINGE IVP SCH ×2 (02:12→09:52)
[2019-01-20 05:58] LABS: MEAN CORPUSCULAR HEMOGLOBIN 22.8 pg (27.0-31.0); MEAN CORPUSCULAR HGB CONC 30.8 g/dL (32.0-36.0); MEAN CORPUSCULAR VOLUME 74.1 fL (81.0-99.0); MEAN PLATELET VOLUME 7.2 fL (7.9-10.8); RED BLOOD COUNT 3.5 10^6/uL (4.20-5.40); RED CELL DISTRIBUTION WIDTH 26.2 % (12.0-15.0); WHITE BLOOD COUNT 3.8 x10^3/uL (4.8-10.8)
[2019-01-20 06:02] LABS: CALCIUM 8.3 mg/dL (8.5-10.3); CREATININE 1.2 mg/dL (0.4-1.0)
[2019-01-20] MEDS: cefTRIAXone 1 GM in SODIUM CHLORIDE 0.9% MINIBAG 100 ML IV SCH (09:49)
[2019-01-20] MEDS: POLYETHYLENE GLYCOL 3350 17 GM PACKET PO SCH (09:49)
[2019-01-20] MEDS: APIXABAN 5 MG TABLET PO SCH ×2 (09:50→21:50)
[2019-01-20] MEDS: METOPROLOL SUCCINATE 25 MG TABLET PO SCH (09:52)
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
--- NOTE | 2019-01-20 10:41 | MRI Report ---
Reason: CVA Procedure Date: 01/20/2019 Accession Number: [id number] / [id number] Procedure: MRI - Brain W/O CPT Code: FULL RESULT: EXAM: MRI BRAIN WITHOUT CONTRAST EXAM DATE: 01/20/2019 09:28 AM. CLINICAL HISTORY: 78-year-old female, confusion, trouble walking, memory loss COMPARISON: CT head 01/18/2019 TECHNIQUE: Multiplanar, multisequence T1-weighted and fluid-sensitive MR sequences of the brain were performed. Sequences optimized for routine evaluation. Other: None. IV Contrast: None. FINDINGS: Parenchyma/Dura: Redemonstration subacute right parieto-occipital infarct as evidenced by mild residual DWI hyperintensity with normalized/increased ADC values and prominent associated FLAIR signal abnormality. There is hemosiderin staining associated with this subacute infarction. The associated cortical T1 hyperintensity likely represents laminar necrosis (series 501 image 19). In addition, there are multiple scattered acute/subacute infarctions within cerebral hemispheres bilaterally, bilateral centrum semiovale, anterior right frontal lobe, right periatrial white matter, lateral right temporal lobe, and small subcentimeter foci within cerebellar hemispheres bilaterally. Of the smaller infarctions, the largest is in the anterior right frontal lobe measuring 1 cm (series 405 image 176). Moderate, semi-confluent T2/FLAIR hyperintense periventricular and deep white matter lesions within cerebral hemispheres bilaterally, nonspecific but favored to represent sequela of chronic microangiopathy. No acute intracranial hemorrhage. Ventricles/Cisterns: Moderate diffuse cerebral volume loss with ex vacuo dilatation of the ventricles and sulci, appears advanced for age. No hydrocephalus. Orbits: Symmetric and unremarkable. Sella Turcica: The pituitary gland, cavernous sinuses, suprasellar cistern and optic chiasm are unremarkable. IAC: Symmetric and unremarkable. Vasculature: Normal signal flow void is seen in the major arterial structures at the skull base. Sinuses: No acute appearing sinus disease. Bones: No focal pathologic appearing marrow signal changes. Other: None. IMPRESSION: 1. Redemonstration subacute right parieto-occipital infarct as evidenced by mild residual DWI hyperintensity with normalized/increased ADC values and prominent associated FLAIR signal abnormality. 2. There is hemosiderin staining associated with this subacute infarction. The associated cortical T1 hyperintensity likely represents laminar necrosis (series 501 image 19). 3. Multiple scattered acute/subacute smaller, primarily subcentimeter infarctions within cerebral hemispheres bilaterally, bilateral centrum semiovale, anterior right frontal lobe, right periatrial white matter, lateral right temporal lobe, and small subcentimeter foci within cerebellar hemispheres bilaterally. Of these smaller infarctions, the largest is in the anterior right frontal lobe measuring 1 cm (series 405 image 176). 4. Moderate, semi-confluent T2/FLAIR hyperintense periventricular and deep white matter lesions within cerebral hemispheres bilaterally, nonspecific but favored to represent sequela of chronic microangiopathy. 5. No acute intracranial hemorrhage. 6. Moderate diffuse cerebral volume loss with ex vacuo dilatation of the ventricles and sulci, appears advanced for age. No hydrocephalus. RADIA The critical result notification system was initiated by Dr. Dany Adkins at 10:30 AM on 01/20/2019. The above critical result findings were discussed with Dr. Webb by Dr. Dany Adkins at 10:39 AM on 01/20/2019.
[2019-01-21] MEDS: SODIUM CHLORIDE FLUSH 0.9% 10 ML SYRINGE IVP SCH ×3 (00:30→09:06)
[2019-01-21] MEDS: APIXABAN 5 MG TABLET PO SCH (09:05)
[2019-01-21] MEDS: METOPROLOL SUCCINATE 25 MG TABLET PO SCH (09:05)
[2019-01-21] MEDS: POLYETHYLENE GLYCOL 3350 17 GM PACKET PO SCH (09:06)
[2019-01-21] MEDS ORDERED: METOPROLOL SUCCINATE 25 MG TABLET PO ONE (11:43)
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
[2019-01-21 12:39] VITALS: BP 143/78
--- NOTE | 2019-01-21 12:39 | Discharge Plan ---
Discharge Plan for SNF / [facility] - Discharge Plan And Transition Orders Disposition: 03 SNF DC/Xfer Condition: Stable Allergies and Adverse Reactions: Allergies Allergy/AdvReac Type Severity Reaction Status Date / Time No Known Drug Allergies Allergy Verified 01/18/19 14:12 - SNF / [facility] Transition Orders Admit to (Facility): [facility] Discharge Diagnosis: Cardioembolic stroke/ multiple bilateral foci of small acute/subacute infarcts and subacute parieto-occiptal infarct Subtherapeutic INR; Warfarin stopped Urinary Tract Infection/Epperson Sensitive Ecoli (Treated) Pulmonary Hypertension RVSP 64mm with moderate Tricuspid regurgitation noted on echo, no oxygen requirement Atrial fibrillation with RVR ; resolved with IV metoprolol in ED (had missed home doses while on floor ~ 2 days) Atrial fibrillation chronic rate controlled on PO metoprolol Chronic anticoagulation; for atrial fibrillation, Warfarin changed to Eliquis [id number] Essential hypertension Fall likely due to cardioembolic stroke (poor judgment, poor problems solving) Mild Rhabdomyolysis; CK ~ 700 on admission after on ground likely 2 days at home Medicare Certification Statement: I certify that [facility] long term care is medically necessary on a continuing basis for any of the conditions for which she/he is receiving care during hospitalization. Notify PCP of admission and forward orders to primary provider for signature. Weight on admission and: Weekly Other Notification Orders: Call PCP immediately if patient develops dyspnea, chest pain/tightness or edema. House Bowel Program: Yes Additional Bowel Program Orders: If no BM after 2 days, nurse may give M.O.M. 30ml PO PRN and/or ducolax Supp 1 MS and/or EFREN 250mg P.O., and/or senna 1-2 tabs PO. On day 3 nurse may give repeat above order until residents constipation is resolved. Annual Influenza Vaccine (between May 18 and December 15): Yes Two-step PPD per [facility] [id number] or approved exception documents: Yes Treatments & Other Orders: Physical Therapy. Occupational Therapy (note [facility] core only 07/14 on incomplete eval). Out of bed to chair TID for meals. Regular Diet Oxygen Orders: No oxygen requirement Lab Tests or X-ray Orders: No repeat studies indicated Orthopedic Orders: None Medication Orders: PLEASE REFER TO THE DISCHARGE MEDICATION LIST. Insulin Orders?: No - Diet Type: Regular Texture: Regular Liquids: Thin May have monthly special meal: Yes
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
[2019-01-21] MEDS ORDERED: ATORVASTATIN 40 MG TABLET PO SCH (21:00)
[2019-01-21] MEDS ORDERED: METOPROLOL SUCCINATE 50 MG TABLET PO SCH (21:00)
== END 2019-01-21 14:05 | DRG 64 ==
LOC: EDUNIT# → ED 13:53 → MS2 16:20
PROVIDERS: ADMIT Nurse Practitioner; ATTEND Nurse Practitioner
DX: I63.431 Cerebral infarction due to embolism of right posterior cerebral artery (principal); I63.412 Cerebral infarction due to embolism of left middle cerebral artery; G93.41 Metabolic encephalopathy; M62.82 Rhabdomyolysis; Z79.02 Long term (current) use of antithrombotics/antiplatelets; Z96.642 Presence of left artificial hip joint; I48.2 Chronic atrial fibrillation; D64.9 Anemia, unspecified; N39.0 Urinary tract infection, site not specified; S70.02XA Contusion of left hip, initial encounter; Z79.01 Long term (current) use of anticoagulants; I10 Essential (primary) hypertension; M41.9 Scoliosis, unspecified; Z66 Do not resuscitate; N30.90 Cystitis, unspecified without hematuria; B96.20 Unspecified Escherichia coli [E. coli] as the cause of diseases classified elsewhere; I27.20 Pulmonary hypertension, unspecified; E78.5 Hyperlipidemia, unspecified; I25.10 Atherosclerotic heart disease of native coronary artery without angina pectoris; M81.0 Age-related osteoporosis without current pathological fracture; M19.90 Unspecified osteoarthritis, unspecified site; Z91.81 History of falling; F03.90 Unspecified dementia, unspecified severity, without behavioral disturbance, psychotic disturbance, mood disturbance, and anxiety; R41.3 Other amnesia; H54.7 Unspecified visual loss; D50.9 Iron deficiency anemia, unspecified; F41.9 Anxiety disorder, unspecified; E55.9 Vitamin D deficiency, unspecified; R32 Unspecified urinary incontinence; R30.0 Dysuria; I08.1 Rheumatic disorders of both mitral and tricuspid valves; I73.9 Peripheral vascular disease, unspecified; R47.9 Unspecified speech disturbances; G62.9 Polyneuropathy, unspecified; K21.9 Gastro-esophageal reflux disease without esophagitis; H91.90 Unspecified hearing loss, unspecified ear; J32.9 Chronic sinusitis, unspecified; F41.0 Panic disorder [episodic paroxysmal anxiety]; R35.1 Nocturia; R35.0 Frequency of micturition; R01.1 Cardiac murmur, unspecified; Z90.49 Acquired absence of other specified parts of digestive tract; Z86.73 Personal history of transient ischemic attack (TIA), and cerebral infarction without residual deficits
CPT/HCPCS: 36415; 51701; 70450; 70551; 71045; 73502; 73700; 80048; 80053; 81001; 82550; 82553; 83036; 83605; 83690; 84443; 84484; 85025; 85027; 85610; 86140; 87040; 87077; 87086; 87181; 93005; 93306; 93971; 96374; 97116; 97161; 97165; 97530; 97535; 99284; A9270; J1650; J7120; 80306; 80320; 81003; 99285